=== PATIENT | male | born 1930 | race Caucasian/White ===

== ENCOUNTER 2020-03-10 22:00 | Inpatient (IN) ==
[2020-03-11] MEDS ORDERED: Naloxone 0.4 MG/ML INJ IVP PRN (01:25)
[2020-03-11] MEDS ORDERED: Ondansetron 4 MG/2 ML VIAL IVP PRN (01:25)
[2020-03-11] MEDS ORDERED: Potassium Chloride 40 MEQ, Lidocaine 1% 2 ML in 0.9 % Sodium Chloride 500 ML IVPB ONE (01:30)
[2020-03-11] MEDS: Ringers Solution, Lactated 1,000 ML IVC SCH ×4 (02:26→23:50)
[2020-03-11] MEDS ORDERED: Ringers Solution, Lactated 500 ML IVC ONE (02:39)
[2020-03-11] MEDS ORDERED: Gadolinium Contrast Agent (WT Based) IV PRN (02:43)
[2020-03-11 03:07] LABS: Basophils % 0.5 %; Eosinophils % 0.7 %; Hematocrit 32.8 % (37.5-50.1); Hemoglobin 11.3 g/dL (12.9-16.9); Immature Granulocytes % 0.2 % (0-4); Lymphocytes # 1.3 K/mcL (0.6-4.6); Lymphocytes % 29.5 %; Mean Corpuscular HGB Conc 34.5 g/dL (31.6-35.5); Mean Corpuscular Hemoglobin 32.6 pg (28.0-33.3); Mean Corpuscular Volume 94.5 fL (83.0-100.0); Mean Platelet Volume 9.1 fL (9.4-12.4); Monocytes # 0.5 K/mcL (0.0-1.3); Monocytes % 10.5 %; Neutrophils # 2.5 K/mcL (1.6-8.9); Platelet Count 331 K/mcL (140-400); Red Blood Count 3.47 M/mcL (4.19-5.50); Red Cell Distribution Width 12.7 % (11.5-14.5); Segmented Neutrophils % 58.6 %; White Blood Count 4.3 K/mcL (4.3-11.1)
[2020-03-11 03:19] LABS: VBG HCO3 20 mEq/L (21-27); VBG PCO2 31 mmHg (41-51); VBG PH 7.41 pH Units (7.32-7.42); VBG PO2 74 mmHg (25-50)
[2020-03-11 03:25] LABS: BUN/Creatinine Ratio 17 (6-26); Blood Urea Nitrogen 15 mg/dL (8-23); Calcium 8.1 mg/dL (8.6-10.3); Carbon Dioxide 19 mEq/L (23-29); Chloride 117 mEq/L (98-107); Glucose 89 mg/dL (70-105); Magnesium 1.9 mg/dL (1.6-2.6); Osmolality,Calculated 302 (280-300); Phosphorous 2.3 mg/dL (2.7-4.5); Potassium 3.2 mEq/L (3.5-5.1); Sodium 146 mEq/L (136-145); eGFR For African Americans > 60 (> 60); eGFR For Non-African Americans > 60 (> 60)
[2020-03-11 03:38] LABS: Thyroid Stimulating Hormone 2.219 mcIU/mL (0.340-5.600)
[2020-03-11 03:44] LABS: Prolactin 7.76 ng/mL (3.00-14.70)
[2020-03-11 03:54] LABS: Folate > 22.3 ng/mL (3.0-16.0); Vitamin B12 241 pg/mL (250-1100)
[2020-03-11] MEDS ORDERED: *HR* Heparin 5,000 UNIT/ML VIAL SQ SCH (06:00)
[2020-03-11] MEDS ORDERED: Cyanocobalamin (B-12) 1,000 MCG/ML VIAL SQ ONE (08:27)
[2020-03-11] MEDS: amLODIPine 5 MG TABLET PO SCH (09:02)
[2020-03-12 05:34] LABS: Basophils % 0.2 %; Eosinophils # 0.1 K/mcL (0.0-0.6); Eosinophils % 1.9 %; Hematocrit 31.5 % (37.5-50.1); Hemoglobin 10.7 g/dL (12.9-16.9); Lymphocytes # 1.2 K/mcL (0.6-4.6); Mean Corpuscular Hemoglobin 32.3 pg (28.0-33.3); Mean Corpuscular Volume 95.2 fL (83.0-100.0); Mean Platelet Volume 8.9 fL (9.4-12.4); Monocytes # 0.4 K/mcL (0.0-1.3); Monocytes % 9.6 %; Neutrophils # 2.5 K/mcL (1.6-8.9); Platelet Count 306 K/mcL (140-400); Red Blood Count 3.31 M/mcL (4.19-5.50); Red Cell Distribution Width 12.7 % (11.5-14.5); Segmented Neutrophils % 59.3 %; White Blood Count 4.2 K/mcL (4.3-11.1)
[2020-03-12 05:53] LABS: Alanine Aminotransferase 5 Units/L (7-52); Albumin 2.8 g/dL (3.5-5.7); Albumin/Globulin Ratio 0.8 (1.1-2.2); Alkaline Phosphatase 47 Units/L (34-104); Aspartate Amino Transferase 11 Units/L (13-39); BUN/Creatinine Ratio 13 (6-26); Bilirubin,Total 0.6 mg/dL (0.3-1.0); Blood Urea Nitrogen 11 mg/dL (8-23); Calcium 7.9 mg/dL (8.6-10.3); Carbon Dioxide 21 mEq/L (23-29); Chloride 120 mEq/L (98-107); Globulin 3.5 g/dL (2.4-3.5); Glucose 80 mg/dL (70-105); Osmolality,Calculated 308 (280-300); Sodium 150 mEq/L (136-145); Total Protein 6.3 g/dL (6.4-8.9); eGFR For African Americans > 60 (> 60); eGFR For Non-African Americans > 60 (> 60)
[2020-03-12] MEDS ORDERED: *HR* FentaNYL (PF) 100 MCG/2 ML VIAL ONE (09:00)
[2020-03-12] MEDS ORDERED: *HR* Propofol 200 MG/20 ML VIAL IVP ONE (09:03)
[2020-03-12] MEDS: amLODIPine 5 MG TABLET PO SCH (09:18)
[2020-03-12] MEDS: Potassium Chloride Elixir 20 MEQ/15 ML UDC PO SCH ×2 (09:19→20:51)
[2020-03-12] MEDS: D5% in Water 1,000 ML IVC SCH (09:20)
[2020-03-12] MEDS ORDERED: *HR* PHENYLEPHRINE 1,000 MCG/10 ML SYRINGE IVP ONE ×2 (09:57→10:21)
[2020-03-12] MEDS ORDERED: Ondansetron 4 MG/2 ML VIAL ONE (10:22)
[2020-03-12] MEDS ORDERED: Lidocaine -MPF 4% 5 ML AMPUL ONE (10:22)
[2020-03-12] MEDS ORDERED: *HR* Succinylcholine 200 MG/10 ML VIAL IVP ONE (10:22)
[2020-03-12] MEDS ORDERED: Lidocaine -MPF 2% 2 ML VIAL ONE (10:22)
[2020-03-12] MEDS ORDERED: *HR* EPINEPHrine 1 MG/10 ML SYRINGE IVP ONE (11:39)
[2020-03-12] MEDS ORDERED: *HR* EPINEPHrine 1 MG/10 ML SYRINGE ONE (11:40)
[2020-03-12 16:23] LABS: Appearance of Body Fluid Cloudy (Clear); Volume of Body Fluid 24 mL
[2020-03-12] MEDS ORDERED: Cyanocobalamin (B-12) 1,000 MCG/ML VIAL SQ ONE (19:16)
[2020-03-12 20:19] LABS: BUN/Creatinine Ratio 11 (6-26); Blood Urea Nitrogen 9 mg/dL (8-23); Calcium 7.7 mg/dL (8.6-10.3); Carbon Dioxide 22 mEq/L (23-29); Chloride 116 mEq/L (98-107); Glucose 113 mg/dL (70-105); Osmolality,Calculated 301 (280-300); Potassium 3.2 mEq/L (3.5-5.1); Sodium 146 mEq/L (136-145); eGFR For African Americans > 60 (> 60); eGFR For Non-African Americans > 60 (> 60)
[2020-03-13 02:18] LABS: Basophils % 0.2 %; Eosinophils # 0.1 K/mcL (0.0-0.6); Eosinophils % 1.1 %; Hematocrit 30.1 % (37.5-50.1); Hemoglobin 10.3 g/dL (12.9-16.9); Immature Granulocytes % 0.5 % (0-4); Lymphocytes # 1.4 K/mcL (0.6-4.6); Lymphocytes % 24.4 %; Mean Corpuscular HGB Conc 34.2 g/dL (31.6-35.5); Mean Corpuscular Hemoglobin 32.9 pg (28.0-33.3); Mean Corpuscular Volume 96.2 fL (83.0-100.0); Mean Platelet Volume 9.3 fL (9.4-12.4); Monocytes # 0.6 K/mcL (0.0-1.3); Monocytes % 10.7 %; Neutrophils # 3.6 K/mcL (1.6-8.9); Platelet Count 298 K/mcL (140-400); Red Blood Count 3.13 M/mcL (4.19-5.50); Red Cell Distribution Width 12.8 % (11.5-14.5); Segmented Neutrophils % 63.1 %; White Blood Count 5.7 K/mcL (4.3-11.1)
[2020-03-13 02:39] LABS: % Iron Saturation 11 % (20-55); BUN/Creatinine Ratio 10 (6-26); Blood Urea Nitrogen 8 mg/dL (8-23); Calcium 7.4 mg/dL (8.6-10.3); Carbon Dioxide 21 mEq/L (23-29); Chloride 115 mEq/L (98-107); Glucose 132 mg/dL (70-105); Iron 22 mcg/dL (65-175); Osmolality,Calculated 296 (280-300); Potassium 3.3 mEq/L (3.5-5.1); Sodium 143 mEq/L (136-145); Transferrin 137 mg/dL (203-362); eGFR For African Americans > 60 (> 60); eGFR For Non-African Americans > 60 (> 60)
[2020-03-13 02:54] LABS: Ferritin 128 ng/mL (20-250)
[2020-03-13] MEDS: amLODIPine 5 MG TABLET PO SCH (09:14)
[2020-03-13] MEDS: Cyanocobalamin (B-12) 1,000 MCG TABLET PO SCH (09:14)
[2020-03-13] MEDS: D5% in Water 1,000 ML IVC SCH ×3 (09:15→23:46)
[2020-03-13] MEDS: predniSONE 20 MG TABLET PO SCH (09:50)
[2020-03-13] MEDS: Potassium Chloride Elixir 20 MEQ/15 ML UDC PO SCH ×2 (12:13→23:49)
[2020-03-14 01:38] LABS: Hematocrit 29.9 % (37.5-50.1); Immature Granulocytes % 0.4 % (0-4); Lymphocytes # 0.6 K/mcL (0.6-4.6); Lymphocytes % 11.6 %; Mean Corpuscular HGB Conc 33.4 g/dL (31.6-35.5); Mean Corpuscular Hemoglobin 31.6 pg (28.0-33.3); Mean Corpuscular Volume 94.6 fL (83.0-100.0); Monocytes # 0.4 K/mcL (0.0-1.3); Neutrophils # 4.4 K/mcL (1.6-8.9); Platelet Count 313 K/mcL (140-400); Red Blood Count 3.16 M/mcL (4.19-5.50); Red Cell Distribution Width 12.1 % (11.5-14.5); White Blood Count 5.4 K/mcL (4.3-11.1)
[2020-03-14 02:01] LABS: BUN/Creatinine Ratio 12 (6-26); Blood Urea Nitrogen 10 mg/dL (8-23); Calcium 7.5 mg/dL (8.6-10.3); Carbon Dioxide 22 mEq/L (23-29); Chloride 111 mEq/L (98-107); Glucose 192 mg/dL (70-105); Osmolality,Calculated 292 (280-300); Potassium 4.5 mEq/L (3.5-5.1); Sodium 139 mEq/L (136-145); eGFR For African Americans > 60 (> 60); eGFR For Non-African Americans > 60 (> 60)
[2020-03-14] MEDS: amLODIPine 5 MG TABLET PO SCH (08:16)
[2020-03-14] MEDS: predniSONE 20 MG TABLET PO SCH (08:16)
[2020-03-14] MEDS: Cyanocobalamin (B-12) 1,000 MCG TABLET PO SCH (08:17)
[2020-03-14] MEDS: D5% in Water 1,000 ML IVC SCH (13:13)
[2020-03-14] MEDS ORDERED: Ibuprofen 600 MG TABLET PO PRN (15:55)
[2020-03-14 17:12] LABS: Hematocrit 31.6 % (37.5-50.1); Hemoglobin 10.6 g/dL (12.9-16.9)
[2020-03-14] MEDS: cefTRIAXone 1,000 MG in Water for inj. (sterile) 10 ML IVP SCH (22:19)
[2020-03-14] MEDS: Acetaminophen 325 MG TABLET PO PRN (22:19)
[2020-03-15 05:15] LABS: Basophils % 0.2 %; Hemoglobin 9.9 g/dL (12.9-16.9); Immature Granulocytes % 0.8 % (0-4); Lymphocytes % 19.3 %; Mean Corpuscular HGB Conc 34.1 g/dL (31.6-35.5); Mean Corpuscular Hemoglobin 31.6 pg (28.0-33.3); Mean Corpuscular Volume 92.7 fL (83.0-100.0); Mean Platelet Volume 9.4 fL (9.4-12.4); Monocytes # 0.5 K/mcL (0.0-1.3); Neutrophils # 3.6 K/mcL (1.6-8.9); Platelet Count 327 K/mcL (140-400); Red Blood Count 3.13 M/mcL (4.19-5.50); Red Cell Distribution Width 11.9 % (11.5-14.5); Segmented Neutrophils % 70.7 %; White Blood Count 5.1 K/mcL (4.3-11.1)
[2020-03-15 05:33] LABS: BUN/Creatinine Ratio 19 (6-26); Blood Urea Nitrogen 16 mg/dL (8-23); Calcium 7.3 mg/dL (8.6-10.3); Carbon Dioxide 23 mEq/L (23-29); Chloride 109 mEq/L (98-107); Glucose 113 mg/dL (70-105); Osmolality,Calculated 290 (280-300); Potassium 3.4 mEq/L (3.5-5.1); Sodium 139 mEq/L (136-145); eGFR For African Americans > 60 (> 60); eGFR For Non-African Americans > 60 (> 60)
[2020-03-15] MEDS: Cyanocobalamin (B-12) 1,000 MCG TABLET PO SCH (08:05)
[2020-03-15] MEDS: predniSONE 20 MG TABLET PO SCH (08:05)
[2020-03-15] MEDS: Potassium Chloride Elixir 20 MEQ/15 ML UDC PO SCH (08:05)
[2020-03-15] MEDS: amLODIPine 5 MG TABLET PO SCH (08:06)
[2020-03-15] MEDS: cefTRIAXone 1,000 MG in Water for inj. (sterile) 10 ML IVP SCH (19:59)
[2020-03-16 03:35] LABS: BUN/Creatinine Ratio 19 (6-26); Blood Urea Nitrogen 15 mg/dL (8-23); Calcium 7.9 mg/dL (8.6-10.3); Carbon Dioxide 23 mEq/L (23-29); Chloride 108 mEq/L (98-107); Glucose 95 mg/dL (70-105); Osmolality,Calculated 289 (280-300); Potassium 3.1 mEq/L (3.5-5.1); Sodium 139 mEq/L (136-145); eGFR For African Americans > 60 (> 60); eGFR For Non-African Americans > 60 (> 60)
[2020-03-16 08:00] LABS: Magnesium 1.5 mg/dL (1.6-2.6)
[2020-03-16] MEDS: amLODIPine 5 MG TABLET PO SCH (08:49)
[2020-03-16] MEDS: Cyanocobalamin (B-12) 1,000 MCG TABLET PO SCH (08:49)
[2020-03-16] MEDS: predniSONE 20 MG TABLET PO SCH (08:49)
[2020-03-16] MEDS: Potassium Chloride Elixir 20 MEQ/15 ML UDC PO SCH (08:51)
[2020-03-16] MEDS ORDERED: Potassium Chloride Elixir 20 MEQ/15 ML UDC PO ONE (11:00)
[2020-03-16] MEDS: cefTRIAXone 1,000 MG in Water for inj. (sterile) 10 ML IVP SCH (20:00)
[2020-03-17 02:03] LABS: BUN/Creatinine Ratio 23 (6-26); Blood Urea Nitrogen 18 mg/dL (8-23); Carbon Dioxide 22 mEq/L (23-29); Chloride 109 mEq/L (98-107); Glucose 107 mg/dL (70-105); Magnesium 2.1 mg/dL (1.6-2.6); Osmolality,Calculated 284 (280-300); Potassium 3.8 mEq/L (3.5-5.1); Sodium 136 mEq/L (136-145); eGFR For African Americans > 60 (> 60); eGFR For Non-African Americans > 60 (> 60)
[2020-03-17] MEDS: predniSONE 20 MG TABLET PO SCH (09:10)
[2020-03-17] MEDS: amLODIPine 5 MG TABLET PO SCH (09:10)
[2020-03-17] MEDS: Cyanocobalamin (B-12) 1,000 MCG TABLET PO SCH (09:11)
[2020-03-17] MEDS: Potassium Chloride Elixir 20 MEQ/15 ML UDC PO SCH (09:13)
[2020-03-17] MEDS: cefTRIAXone 1,000 MG in Water for inj. (sterile) 10 ML IVP SCH (19:40)
[2020-03-18] MEDS: amLODIPine 5 MG TABLET PO SCH (09:32)
[2020-03-18] MEDS: Potassium Chloride Elixir 20 MEQ/15 ML UDC PO SCH (09:32)
[2020-03-18] MEDS: Cyanocobalamin (B-12) 1,000 MCG TABLET PO SCH (09:34)
[2020-03-18] MEDS: (Abiraterone Acetate [Zytiga] 1,000 MG) PO SCH (09:34)
[2020-03-18] MEDS: cefTRIAXone 1,000 MG in Water for inj. (sterile) 10 ML IVP SCH (23:05)
[2020-03-19] MEDS: Potassium Chloride Elixir 20 MEQ/15 ML UDC PO SCH (08:38)
[2020-03-19] MEDS: amLODIPine 5 MG TABLET PO SCH (08:39)
[2020-03-19] MEDS: Cyanocobalamin (B-12) 1,000 MCG TABLET PO SCH (08:39)
[2020-03-19] MEDS: Acetaminophen 325 MG TABLET PO PRN (08:56)
[2020-03-19] MEDS: (Abiraterone Acetate [Zytiga] 1,000 MG) PO SCH (08:57)
[2020-03-19 11:06] VITALS: BP 101/65
== END 2020-03-19 14:00 | DRG 70 ==
LOC: 3NENU → SUATTDRO 03-11 00:20 → 2ANU 03-13 08:08
PROVIDERS: ADMIT Student in an Organized Health Care Education/Training Program; ATTEND Student in an Organized Health Care Education/Training Program